=== PATIENT | female | born 1965 | race Caucasian/White ===

== ENCOUNTER 2024-12-20 11:05 | Emergency (ER) | payer OTHER, SELFPAY ==
--- NOTE | ~2024-12-20 | CT_ITS ---
CLINICAL HISTORY: right flank pain CT ABDOMEN AND PELVIS WITHOUT CONTRAST Comparison: None provided Findings: Scattered atelectasis and/or scarring. 4 mm noncalcified nodule in the right lower lobe is nonspecific. No basilar consolidation or pleural effusion. Mild right hydronephrosis secondary to a 3 mm calculus in the right ureteropelvic junction. No acute abnormalities in the remaining unenhanced solid organs Cholecystectomy. Common bile duct measures 10 mm. Calcific plaque in the normal caliber abdominal aorta. No bowel obstruction, pneumoperitoneum, or pneumatosis. No ascites or organized fluid collection. No significant mesenteric or paracolic edema. The appendix is identified. No acute appendicitis. Anteverted uterus. Urinary bladder unremarkable. Multiple pelvic phleboliths. No acute fracture. IMPRESSION: 1. Mild right hydronephrosis secondary to a 3 mm calculus in the right ureteropelvic junction. 2. Prior cholecystectomy with common bile ductal dilatation up to 10 mm. No visible choledocholithiasis. 3. No obstructive or acute inflammatory changes in the gastrointestinal tract. This document has been electronically signed by: Mayda Martinez DO on 12/20/2024 13:12:58
[2024-12-20 11:09] VITALS: BP 124/59; PULSE 53; O2SAT 98
[2024-12-20 11:10] VITALS: BP 132/58; PULSE 50; RESP 18; TEMP 36.6; O2SAT 98; BMI 26.6
--- OUTSIDE RECORDS SUMMARY | 2024-12-20 11:30 | XMS_ITS | Encounter Summary ---
Author Organization [facility] Address [address] [place] [address] Phone Care Team Providers Care Ghost Writer Name Role Phone Aubree Villanueva MD Unavailable [phone] Ginger Trujillo MD Unavailable [phone] Daniel Buck PA-C Unavailable [phone] Louise Acevedo DO Primary Care Provider [phone] Alcides Miner MD Primary Care Provider [phone] Encounter Details Date Type Department Care Team (Latest Contact Info) Description 10/31/2020 Transcribe Orders Virtual Department [address] [place], [place] [id number] Darell Mccrary MD [address] [place] [address] [id number] [email or web address] Abnormal LFTs (Primary Dx) Social History Tobacco Use Types Packs/Day Years Used Date Smoking Tobacco: Never Smokeless Tobacco: Never Alcohol Use Standard Drinks/Week Comments Not Currently 1 (1 standard drink = 0.6 oz pur e alcohol) monthly Comments No Sex and Gender Information Value Date Recorded Sex Assigned at Female 04/29/2017 9:38 AM EST Legal Sex Female 9:38 PM EDT Gender Identity Female 04/29/2017 9:38 AM EST Sexual Orientation Straight 04/29/2017 9: 38 AM EST Occupation Industry Job Start Date Job End Date [employer] REF Not on file Not on file Not on file documented as of this encounter Plan of Treatment Not on file documented as of this encounter Results * US ABDOMEN LIMITED RIGHT UPPER QUADRANT (11/14/2020 10:18 AM EDT) Anatomical Region Laterality Modality Abdomen Ultrasound 11/14/2020 10:2 0 AM EDT Impressions 11/14/2020 10:21 AM EDT New hepatic steatosis. No acute findings. Narrative 11/14/2020 10:21 AM EDT COMPARISON: 05/19/2020. LIMITED ABDOMEN ULTRASOUND FINDINGS: Liver: Interval diffuse increased echogenicity. No masses. Gallbladder: Cholecystectomy. Common bile duct: 1 cm which is unchanged. Pancreas: Imaged pancreas. The pancreatic tail is obscured by bowel gas. Right Kidney: No hydronephrosis. Proximal abdominal aorta/IVC/Main Portal Vein: Unremarkable. Procedure Note Jose Mallory MD - 11/14/2020 COMPARISON: 05/19/2020. LIMITED ABDOMEN ULTRASOUND FINDINGS: Liver: Interval diffuse increased echogenicity. No masses. Gallbladder: Cholecystectomy. Common bile duct: 1 cm which is unchanged. Pancreas: Imaged pancreas. The pancreatic tail is obscured by bowelgas. Right Kidney: No hydronephrosis. Proximal abdominal aorta/IVC/Main Portal Vein: Unremarkable. IMPRESSION: New hepatic steatosis. No acute findings. us Darell Mccrary MD IMG US ABDOMEN Final Result documented in this encounter Visit Diagnoses Diagnosis Abnormal LFTs- Primary Abnormal LFTs documented in this encounter Care Teams Ghost Writer Relationship Specialty Start Date End Date Louise Acevedo DO [address] [place] [address] PCP - General Internal Medicine 05/19/20 08/26/23 Alcides Miner MD [address] [place] [phone] [email or web address] PCP - General Internal Medicine 08/27/23 Aubree Villanueva MD [address] [facility], [address] [place] [address] Historical LMR Provider 02/09/17 Ginger Trujillo MD [address] [place] [address], 2nd [place] [address] [email or web address] Historical LMR Provider 02/09/17 04/29/21 Daniel Buck PA-C [address] [place] [address] 1 [place] [address] Historical LMR Provider 02/09/17 2 documented as of this encounter Additional Source Comments The information contained in this document represents components of the legal health record. It is not the complete legal health record.[facility]
--- OUTSIDE RECORDS SUMMARY | 2024-12-20 11:30 | XMS_ITS | Encounter Summary ---
Author Organization [facility] Address [address] [place] [address] Phone Care Team Providers Care Materials Engineer Name Role Phone Aubree Villanueva MD Unavailable [phone] Ginger Trujillo MD Unavailable [phone] Daniel Buck PA-C Unavailable [phone] Unknown, Unknown Primary Care Provider Sandrine Ca NP Primary Care Provider [phone] Louise Acevedo DO Primary Care Provider [phone] Alcides Miner MD Primary Care Provider [phone] Reason for Referral * MRI/CAT Scan - Closed Specialty Diagnoses / Procedures Referred By Contac t Referred To Contact Radiology Diagnoses Lumbar radiculopathy Procedures MRI Lumbar Spine Scott Macedo MD Phone: tel: fax: Referral ID Status Reason Start Date Expiration Date Visits Re quested Visits Authorized [id number] Closed 12/24/2019 06/21/2020 1 1 Encounter Details Date Type Department Care Team (Latest Contact Info) Description 12/24/2019 Ancillary Orders [facility]3] Department [address] [place] [address] Scott Macedo MD [address] [place] [phone] Lumbar radiculopathy Social History Tobacco Use Types Packs/Day Years Used Date Smoking Tobacco: Never Smokeless Tobacco: Never Alcohol Use Standard Drinks/Week Comments Yes 1 (1 standard drink = 0.6 oz [...] documented as of this encounter Results * MRI LUMBAR SPINE (NEURO) WITHOUT CONTRAST (01/01/2020 8:18 AM EDT) Anatomical Region Laterality Modality L-spine Magnetic Resonan ce 01/01/2020 9:24 AM EDT Impressions 01/01/2020 9:29 AM EDT Multilevel disc protrusions and bulges, including new small to medium-sized disc protrusions at T12-L1 and L4-5. No prominent mass effect at any level, however. No significant canal stenosis or marked foraminal narrowing at any level. Narrative 01/01/2020 9:29 AM EDT HISTORY: Low back pain with right radicular symptoms. Bilateral feet numbness. COMPARISON: December 12, 2012 TECHNIQUE: Exam performed on a 1.5 Janette high-field MRI scanner. Sagittal T1, T2 and STIR, axial T1 and T2 sequences were obtained. FINDINGS: On sagittal sequences at T11-12 no finding of concern is identified. T12-L1: There is a new medium-sized right paracentral disc protrusion extending inferiorly. No prominent regional mass-effect. No canal or foraminal stenosis. L1-2: Degenerative disc disease with some focal left-sided disc bulging again noted, slightly more pronounced appearing but still minor. No significant canal or foraminal stenosis. L1-2: No findings of concern. L3-4: Small inferiorly extending disc protrusion again noted without significant mass effect or progression. No significant canal or foraminal stenosis. L4-5: Small central disc protrusion, new since prior fairly broad-based and with mild inferior extension but again without prominent mass-effect. No significant canal or foraminal stenosis. L5-S1: Degenerative disc disease with some chronic marrow endplate changes and mild disc ridge complex. No canal or foraminal stenosis. No marked hypertrophic changes at any level. Dural cyst noted at S2-3, unchanged. No worrisome marrow signal changes. Visualized lower thoracic cord demonstrates no clear signal abnormality. Study is not tailored for evaluation of regional soft tissues but no soft tissue findings of clear concern are detected in the [id number]. Procedure Note Franko Ralph MD - 01/01/2020 HISTORY: Low back pain with right radicular symptoms. Bilateral feetnumbness. COMPARISON: December 12, 2012 TECHNIQUE: Exam performed on a 1.5 Janette high-field MRI scanner. SagittalT1, T2 and STIR, axial T1 and T2 sequences were obtained. FINDINGS: On sagittal sequences at T11-12 no finding of concern is identified. T12-L1: There is a new medium-sized right paracentral disc protrusionextending inferiorly. No prominent regional mass-effect. No canal orforaminal stenosis. L1-2: Degenerative disc disease with some focal left-sided disc bulgingagain noted, slightly more pronounced appearing but still minor. Nosignificant canal or foraminal stenosis. L1-2: No findings of concern. L3-4: Small inferiorly extending disc protrusion again noted withoutsignificant mass effect or progression. No significant canal or foraminalstenosis. L4-5: Small central disc protrusion, new since prior fairly broad-basedand with mild inferior extension but again without prominent mass-effect.No significant canal or foraminal stenosis. L5-S1: Degenerative disc disease with some chronic marrow endplate changesand mild disc ridge complex. No canal or foraminal stenosis. No marked hypertrophic changes at any level. Dural cyst noted at S2-3,unchanged. No worrisome marrow signal changes. Visualized lower thoracic cord demonstrates no clear signal abnormality. Study is not tailored for evaluation of regional soft tissues but no softtissue findings of clear concern are detected in the [id number]. IMPRESSION: Multilevel disc protrusions and bulges, including new small tomedium-sized disc protrusions at T12-L1 and L4-5. No prominent mass effectat any level, however. No significant canal stenosis or marked foraminalnarrowing at any level. us Scott Macedo MD IMG MR XSPECIALTY Final Re sult documented in this encounter Visit Diagnoses Diagnosis Lumbar radiculopathy Thoracic or lumbosacral neuritis or radiculitis, unspecified Lumbar radiculopathy Thoracic or lumbosacral neuritis or radiculitis, unspecified documented in this encounter Care Teams Materials Engineer Relationship Specialty Start Date End Date Unknown, Unknown, [address] [place] [address] 1 [place] [address] PCP - General 11/12/18 12/31/19 Sandrine Metcalf NP [address] [place] [address] PCP - General 01/01/20 05/18/20 Louise Acevedo DO [address] [place] [address] PCP - General Internal Medicine 05/19/20 08/26/23 Alcides Miner MD [address] [place] [address] PCP - General Internal Medicine 08/27/23 Aubree Villanueva MD [address] [place] [address] [address] [place] [address] [email or web address] Historical LMR Provider 02/09/17 Ginger Trujillo MD [address] [place] [address], 2[address] [place] [address] Historical LMR Provider 02/09/17 04/29/21 Daniel Buck PA-C [address] [place], [place] [phone] Historical LMR Provider 02/09/17 2 documented as of this encounter Additional Source Comments The information contained in this document represents components of the legal health record. It is not the complete legal health record.[facility]
--- OUTSIDE RECORDS SUMMARY | 2024-12-20 11:30 | XMS_ITS | Encounter Summary ---
Author Organization [facility] Address [address] [place] [address] Phone Care Team Providers Care Mold Stacker Name Role Phone Aubree Villanueva MD Unavailable [phone] Ginger Trujillo MD Unavailable [phone] Daniel Buck PA-C Unavailable [phone] Louise Acevedo DO Primary Care Provider [phone] Alcides Miner MD Primary Care Provider + [phone] Encounter Details Date Type Department Care Team (Late st Contact Info) Description 06/27/2020 Procedure Pass [facility] Endoscopy Admitting Dept Virtual Department [address] [place] [address] Social History Tobacco Use Types Packs/Day Years [...] on file documented as of this encounter Visit Diagnoses Not on filedocumented in this encounter Care Teams Mold Stacker Relationship Specialty Start Date End Date Louise Acevedo DO [address] [place] [address] PCP - General Internal Medicine 05/19/20 08/26/23 Alcides Miner MD [address] [place] [address] PCP - General Internal Medicine 08/27/23 Aubree Villanueva MD [address] [place] [address], [address] [place] [address] Historical LMR Provider 02/09/17 Ginger Trujillo MD [address] [place] [address], 2nd [place] [address] Historical LMR Provider 02/09/17 04/29/21 Daniel Buck PA-C [address] [place] [address] [address] [place] [address] Historical LMR Provider 02/09/17 2 documented as of this encounter Additional Source Comments The information contained in this document represents components of the legal health record. It is not the complete legal health record.[facility]
--- OUTSIDE RECORDS SUMMARY | 2024-12-20 11:30 | XMS_ITS | Encounter Summary ---
Author Organization [facility] Address [address] [place] [address] Phone Care Team Providers Care Paperhanger Supervisor Name Role Phone Aubree Villanueva MD Unavailable [phone] Alcides Miner MD Primary Care Provider [phone] Encounter Details Date Type Department Care Team (Late st Contact Info) Description 08/27/2023 Procedure Pass [facility] Endoscopy Admitting Dept Virtual Department 30 [place] [address] Social History Tobacco Use Types Packs/Day Years Used Date Smoking Tobacco: Never Smokeless Tobacco: Never Alcohol Use Standard Drinks/Week Comments Not Currently 0 (1 standard drink = 0.6 oz pur e alcohol) Education Answer Date Recorded Are you interested in more education? Not on sunil e 08/17/2022 Are you concerned about learning? Not on file 08/17/2022 No 08/17/2022 No 08/17/2022 Digital Access Answer Date Recorded No 09/15/2022 No 09/15/2022 Reliable internet access at home? Not on file 09/15/2022 Device with a working camera? Not on file Intimate Partner Violence Answer Date R ecorded Denied Basic Needs Not on file 08/26/2023 In the past 12 months have y ou been in a relationship with a person who hurts, threatens, or tries to control you? No 08/26/2023 Worried food would run out Not on file 08/25 In the past 12 months have y ou been in a relationship with a person who hurts, threatens, or tries to control you? No 08/26/2023 Comments No Sex and Gender Information Value [...] on filedocumented in this encounter Care Teams Paperhanger Supervisor Relationship Specialty Start Date End Date Alcides Miner MD [address] [place] [address] [email or web address] PCP - General Internal Medicine 08/27/23 Aubree Villanueva MD [address] [facility], [facility] [place] [address] [place] [address] [email or web address] Historical LMR Provider 02/09/17 documented as of this encounter Additional Source Comments The information contained in this document represents components of the legal health record. It is not the complete legal health record.[facility]
--- OUTSIDE RECORDS SUMMARY | 2024-12-20 11:30 | XMS_ITS | Encounter Summary ---
Author Organization [facility] Address [address] [place] [address] Phone Care Team Providers Care Avionics Repair Technician Name Role Phone Aubree Villanueva MD Unavailable [phone] Ginger Trujillo MD Unavailable [phone] Daniel Buck PA-C Unavailable [phone] Sandrine Metcalf NP Primary Care Provider [phone] Louise Acevedo DO Primary Care Provider [phone] Alcides Miner MD Primary Care Provider + [phone] Encounter Details Date Type Department Care Team (Latest Contact Info) Description 05/06/2020 Transcribe Orders [address] [place] [address] Karyna Mercado PA-C [address] [place] [place] [address] [email or web address] RUQ pain (Primary Dx); Constipation, unspecified constipation type; Diarrhea, unspecified type Social History Tobacco Use Types Packs/Day Years [...] documented as of this encounter Results * Stool fat/fiber exam (05/13/2020 9:07 AM EST) FATTY ACID NORMAL NORMAL [facility] Neutral Fat, stool NORMAL NORMAL [facility] Stool (Stool) 05/13/2020 9:0 7 AM EST 05/13/2020 9:14 AM EST Karyna Mercado PA-C BODY FLUIDS AND STOOLS ORDERABL ES Final Result Performing Organization Address [facility] de Phone Number [address] [address] * Fecal leukocyte examination (05/13/2020 9:07 AM EST) Special Requests None 05/13/2020 9:08 AM EST [facility] GRAM STAIN No WBC seen on smear. 05/14/2020 9:35 AM EST [facility] Stool (Stool) 05/13/2020 9:0 7 AM EST 05/13/2020 9:15 AM EST Comment:STOOL us Karyna Mercado PA-C MICROBIOLOGY - GENERAL ORDERABL ES Final Result Performing Organization Address [facility]/ZIP Co de Phone Number [address] [address] * Fecal immunochemical test x1 (FIT) (05/13/2020 9:07 AM EST) Immuno Fecal Occult Negative Negative [facility] Stool (Stool) 05/13/2020 9:0 7 AM EST 05/13/2020 9:15 AM EST Karyna Mercado PA-C BODY FLUIDS AND STOOLS ORDERABL ES Final Result Performing Organization Address [facility] Co de Phone Number [address] [place] [address] * TSH (05/06/2020 10:57 AM EST) TSH 2.98 0.27 - 4.20 uIU/mL [facility] Blood 05/06/2020 10:5 7 AM EST 05/06/2020 11:02 AM EST us Karyna Mercado PA-C LAB BLOOD ORDERABLES Final Resu lt [address] [address] * Immunoglobulin A (05/06/2020 10:57 AM EST) Pathologist [facility] IgA 224 70 - 400 mg/dL [facility] Blood 05/06/2020 10:5 7 AM EST 05/06/2020 11:02 AM EST us Karyna Mercado PA-C LAB BLOOD ORDERABLES Final Resu lt Performing Organization Address City[facility]/ZIP Co de Phone Number [address] [address] * Tissue transglutaminase IgA (05/06/2020 10:57 AM EST) Pathologist [facility] TTG IGA ANTIBODY <1.2 <4.0 (Negative) U/mL [facility]PATH [facility] PA[facility] Blood 05/06/2020 10:5 7 AM EST 05/06/2020 11:02 AM EST us Karyna Mercado PA-C LAB BLOOD ORDERABLES Final Resu lt [facility] [address] [place] [address] * (ABNORMAL) C-Reactive Protein (05/06/2020 10:57 AM EST) Pathologist [facility] C REACTIVE PROTEIN 7.3(H) 0.0 - 4.0 mg/L [facility] Blood 05/06/2020 10:5 7 AM EST 05/06/2020 11:02 AM EST us Karyna Mercado PA-C LAB BLOOD ORDERABLES Final Resu lt [facility] [address] [place] [address] * CBC and differential (05/06/2020 10:57 AM EST) WBC 6.21 4.00 - 11.00 K/uL [facility] Comment:Note Reference Range updates to all CBC and Differential results. RBC 4.57 3.72 - 5.30 M/uL [facility] HGB 14.0 10.6 - 15.5 g/dL [facility] Comment:Note updated Referen ce Ranges for all CBC and Differential results. HCT 42.5 32.0 - 45.0 % [facility] PLT 270 140 - 430 K/uL [facility] MCV 93.0 78.0 - 97.0 fL [facility] MCH 30.6 25.0 - 33.0 pg [facility] MCHC 32.9 32.0 - 36.0 g/dL [facility] RDW 12.4 11.0 - 16.0 % [facility] MPV 10.4 8.4 - 12.8 fl [facility] NRBC 0.00 0 /100 WBCs [facility] ABSOLUTE NRBC 0.00 0 K/uL [facility] DIFF METHOD Auto [facility] NEUTS 52.1 43.0 - 75.0 % [facility] LYMPHS 41.7 18.2 - 47.4 % [facility] MONOS 4.2 4.00 - 11.00 % [facility] EOS 1.4 0.0 - 8.0 % [facility] BASOS 0.3 0.0 - 2.0 % [facility] Granulocytes, immature (%) 0.3 0.0 - 0.9 % [facility] ABSOLUTE NEUTS 3.23 1.80 - 7.70 K/uL [facility] ABSOLUTE LYMPHS 2.59 1.00 - 3.10 K/uL [facility] ABSOLUTE MONOS 0.26 0.20 - 0.80 K/uL [facility] ABSOLUTE EOS 0.09 0.00 - 0.80 K/uL [facility] ABSOLUTE BASOS 0.02 0.00 - 0.09 K/uL [facility] Granulocytes, immature 0.02 0.00 - 0.05 K/uL [facility] Blood 05/06/2020 10:5 7 AM EST 05/06/2020 11:02 AM EST us Karyna Mercado PA-C LAB BLOOD ORDERABLES Final Resu lt [facility] [address] [place] [address] * (ABNORMAL) Comprehensive metabolic panel (05/06/2020 10:57 AM EST) SODIUM 139 133 - 146 mmol/L [facility] POTASSIUM 3.8 3.3 - 5.1 mmol/L [facility] CHLORIDE 104 96 - 108 mmol/L [facility] CO2 26 21 - 35 mmol/L [facility] BUN 10 6 - 19 mg/dL [facility] CREATININE 0.70 0.5 - 1.5 mg/dL [facility] GLUCOSE 105(H) 70 - 99 mg/dL [facility] ALBUMIN 3.7(L) 3.9 - 4.8 g/dL [facility] TOTAL PROTEIN 7.3 6.5 - 8.0 g/dL [facility] CALCIUM 9.0 8.4 - 10.3 mg/dL [facility] ALKALINE PHOSPHATASE 62 39 - 117 U/L [facility] TOTAL BILIRUBIN 0.3 0.0 - 1.2 mg/dL [facility] AST 16 0 - 37 U/L [facility] ALT 12 0 - 40 U/L [facility] GLOBULIN 3.6 1 - 4.8 g/dL [facility] EGFR 100 >59 mL/min/1.7 3m2 [facility] Comment:Estimated glomerular filtration rate calculated using the CKD-EPI equation. ANION GAP 13 10 - 20 mmol/L [facility] Blood 05/06/2020 10:5 7 AM EST 05/06/2020 11:02 AM EST Karyna Mercado PA-C LAB BLOOD ORDERABLES Final Resu lt [facility] [address] [place] [address] documented in this encounter Visit Diagnoses Diagnosis RUQ pain- Primary Abdominal pain, right upper quadrant Constipation, unspecified constipation type Diarrhea, unspecified type documented in this encounter Care Teams Avionics Repair Technician Relationship Specialty Start Date End Date Sandrine Metcalf NP [address] [place] [address] PCP - General 01/01/20 05/18/20 Louise Acevedo DO [address] [place] [address] PCP - General Internal Medicine 05/19/20 08/26/23 Alcides Miner MD [address] [place] [address] PCP - General Internal Medicine 08/27/23 Aubree Villanueva MD [address] [place] [address], [address] [place] [address] Historical LMR Provider 02/09/17 Ginger Trujillo MD [address] [place] [address], 2[address] [place] [address] Historical LMR Provider 02/09/17 04/29/21 Daniel Buck PA-C [address] [place] [address] 1 [place] [address] Historical LMR Provider 02/09/17 2 documented as of this encounter Additional Source Comments The information contained in this document represents components of the legal health record. It is not the complete legal health record.[facility]
--- OUTSIDE RECORDS SUMMARY | 2024-12-20 11:30 | XMS_ITS | Encounter Summary ---
Author Organization [facility] Address [address] [address] Phone Care Team Providers Care Computer Engineer Name Role Phone Aubree Villanueva MD Unavailable [phone] Ginger Trujillo MD Unavailable [phone] Daniel Buck PA-C Unavailable [phone] Daniel Buck PA-C Primary Care Provider [phone] Unknown, Unknown Primary Care Provider Sandrine Ca NP Primary Care Provider Louise Acevedo DO Primary Care Provider [phone] Alcides Miner MD Primary Care Provider + [phone] Encounter Details Date Type Department Care Team (Late st Contact Info) Description 03/31/2018 Ancillary Orders Virtual Department 30 [place] [address] Sandrine Metcalf NP [address] [place] [address] Visit for screening mammogram Social History Tobacco Use Types Packs/Day Years [...] documented as of this encounter Visit Diagnoses Diagnosis Visit for screening mammogram documented in this encounter Care Teams Computer Engineer Relationship Specialty Start Date End Date Daniel Buck, VONNIE [address] [place] [address] PCP - General 02/20/17 07/20/18 Unknown, Unknown, [address] [place] [address] PCP - General 11/12/18 12/31/19 Sandrine Metcalf NP [address] [place] [address] PCP - General 01/01/20 05/18/20 Louise Acevedo DO [address] [place] [address] PCP - General Internal Medicine 05/19/20 08/26/23 Alcides Miner MD [address] [place] [address] PCP - General Internal Medicine 08/27/23 Aubree Villanueva MD [address] [place] [address] [email or web address] Historical LMR Provider 02/09/17 Ginger Trujillo MD [address] [place] [address], 2nd [place] [address] Historical LMR Provider 02/09/17 04/29/21 Daniel Buck PA-C [address] [place] [address] [place], [place] [id number] Historical LMR Provider 02/09/17 2 documented as of this encounter Additional Source Comments The information contained in this document represents components of the legal health record. It is not the complete legal health record.[facility]
--- OUTSIDE RECORDS SUMMARY | 2024-12-20 11:30 | XMS_ITS | Encounter Summary ---
Author Organization [facility] Address [address] [place] [address] Phone Care Team Providers Care Ged Instructor Name Role Phone Aubree Villanueva MD Unavailable [phone] Ginger Trujillo MD Unavailable [phone] Daniel Buck PA-C Unavailable [phone] Louise Acevedo DO Primary Care Provider [phone] Alcides Miner MD Primary Care Provider + [phone] Encounter Details Date Type Department Care Team (Late st Contact Info) Description 11/17/2020 Procedure Pass [facility] Endoscopy Admitting Dept Virtual Department [address] [place] [address] Social History Tobacco Use Types Packs/Day Years [...] on filedocumented in this encounter Care Teams Ged Instructor Relationship Specialty Start Date End Date Louise Acevedo DO [address] [place] [address] PCP - General Internal Medicine 05/19/20 08/26/23 Alcides Miner MD [address] [place] [address] PCP - General Internal Medicine 08/27/23 Aubree Villanueva MD [address] [place] [address], [address] [place] [address] Historical LMR Provider 02/09/17 Ginger Trujillo MD [address] [place] [address], [address] [place] [address] Historical LMR Provider 02/09/17 04/29/21 Daniel Buck PA-C [address] [place] [address] [address] [place] [address] Historical LMR Provider 02/09/17 2 documented as of this encounter Additional Source Comments The information contained in this document represents components of the legal health record. It is not the complete legal health record.[facility]
--- OUTSIDE RECORDS SUMMARY | 2024-12-20 11:30 | XMS_ITS | Encounter Summary ---
Author Organization [facility] Address [address] [place] [address] Phone Care Team Providers Care Fiber Technologist Name Role Phone Aubree Villanueva MD Unavailable [phone] Ginger Trujillo MD Unavailable [phone] Daniel Buck PA-C Unavailable [phone] Daniel Buck PA-C Primary Care Provider [phone] Unknown, Unknown Primary Care Provider Sandrine Ca NP Primary Care Provider [phone] Louise Acevedo DO Primary Care Provider [phone] Alcides Miner MD Primary Care Provider + [phone] Encounter Details Date Type Department Care Team (Late st Contact Info) Description 05/03/2017 Procedure Pass [place] Admitting Dept - Virtual Department [address] [place] [address] Social History Tobacco Use Types Packs/Day Years Used Date Smoking Tobacco: Never Smokeless Tobacco: Never Alcohol Use Standard Drinks/Week Comments Yes 0 (1 standard drink = 0.6 oz pur e alcohol) hardly ever Comments No Sex and Gender Information Value [...] on filedocumented in this encounter Care Teams Fiber Technologist Relationship Specialty Start Date End Date Daniel Buck PA-C [address] [place] [address] PCP - General 02/20/17 07/20/18 Unknown, Genie, [address] [place] [address] PCP - General 11/12/18 12/31/19 Sandrine Metcalf NP [address] [place] [address] PCP - General 01/01/20 05/18/20 Louise Acevedo DO [address] [place] [address] PCP - General Internal Medicine 05/19/20 08/26/23 Alcides Miner MD [address] [place] [address] PCP - General Internal Medicine 08/27/23 Aubree Villanueva MD [address] [place] [address], [facility] [address] [place] [address] Historical LMR Provider 02/09/17 Ginger Trujillo MD [address] [place] [address], 2nd [place] [address] Historical LMR Provider 02/09/17 04/29/21 Daniel Buck PA-C [address] [place] [address] Historical LMR Provider 02/09/17 2 documented as of this encounter Additional Source Comments The information contained in this document represents components of the legal health record. It is not the complete legal health record.[facility]
--- OUTSIDE RECORDS SUMMARY | 2024-12-20 11:30 | XMS_ITS | Encounter Summary ---
Author Organization [facility] Address [address] [place] [address] Phone Care Team Providers Care Real Estate Services Administrator Name Role Phone Aubree Villanueva MD Unavailable [phone] Ginger Trujillo MD Unavailable [phone] Daniel Buck PA-C Unavailable [phone] Unknown, Unknown Primary Care Provider Sandrine Ca NP Primary Care Provider [phone] Louise Acevedo DO Primary Care Provider [phone] Alcides Miner MD Primary Care Provider + [phone] Encounter Details Date Type Department Care Team (Late st Contact Info) Description 12/24/2019 Procedure Pass [address] [place] [address] Social History Tobacco Use Types Packs/Day Years [...] on filedocumented in this encounter Care Teams Real Estate Services Administrator Relationship Specialty Start Date End Date Unknown, Unknown, [address] [place] [address] 1 [place] [address] PCP - General 11/12/18 12/31/19 Sandrine Metcalf NP [address] [place] [address] PCP - General 01/01/20 05/18/20 Louise Acevedo DO [address] [place] [address] PCP - General Internal Medicine 05/19/20 08/26/23 Alcides Miner MD [address] [place] [address] PCP - General Internal Medicine 08/27/23 Aubree Villanueva MD [address] [place] [address], [address] [place] [address] [email or web address] Historical LMR Provider 02/09/17 Ginger Trujillo MD [address] [place] [address], 2nd [place] [address] Historical LMR Provider 02/09/17 04/29/21 Daniel Buck PA-C [address] [place] [address] Historical LMR Provider 02/09/17 2 documented as of this encounter Additional Source Comments The information contained in this document represents components of the legal health record. It is not the complete legal health record.[facility]
--- OUTSIDE RECORDS SUMMARY | 2024-12-20 11:30 | XMS_ITS | Encounter Summary ---
Author Organization [facility] Address [address] [place] [address] Care Team Providers Care Mannequin Maker Name Role Phone Sara Pabon PA-C Primary Care Provider [phone] Reason for Visit * Reason Comments Medication Management Encounter Details Date Type Department Care Team ([facility] Contact Info) Description 03/27/2023 Telephone [facility], [address] [place] [id number] Nathan Stafford MD [facility] [address] [place] [address] Medication Management Social History Tobacco Use Types Packs/Day Years Used Date Smoking Tobacco: Never Alcohol Use Standard Drinks/Week Comments Not Currently 0 (1 standard drink = 0.6 oz pur e alcohol) Comments Unknown Sex and Gender Information Value Date Recorded Sex Assigned at Female 09/18/2022 8:26 AM EDT Legal Sex Female 10:21 AM EDT Gender Identity Female 09/18/2022 8:26 AM EDT Sexual Orientation Heterosexual (straight) 09/18 8:26 AM EDT documented as of this encounter Plan of Treatment Not on file documented as of this encounter Visit Diagnoses Not on filedocumented in this encounter Care Teams Mannequin Maker Relationship Specialty Start Date End Date Sara Pabon PA-C [address] [place] [address] PCP - General 07/10/22 documented as of this encounter
--- OUTSIDE RECORDS SUMMARY | 2024-12-20 11:30 | XMS_ITS | Encounter Summary ---
Author Organization [facility] Address [address] [place] [address] Phone Care Team Providers Care Control Clerk Repairs Name Role Phone Aubree Villanueva MD Unavailable [phone] Ginger Trujillo MD Unavailable [phone] Daniel Buck PA-C Unavailable [phone] Sandrine Metcalf NP Primary Care Provider [phone] Louise Acevedo DO Primary Care Provider [phone] Alcides Miner MD Primary Care Provider + [phone] Encounter Details Date Type Department Care Team (Latest Contact Info) Description 05/13/2020 Transcribe Orders Virtual Department 30 [place] [address] Karyna Mercado PA-C [address] [facility], [place]. [address] [place] [address] [email or web address] Gastroesophageal reflux disease, unspecified whether esophagitis present (Primary Dx); RUQ pain Social History Tobacco Use Types Packs/Day Years [...] * US ABDOMEN LIMITED RIGHT UPPER QUADRANT (05/19/2020 8:36 AM EST) Anatomical Region Laterality Modality Abdomen Ultrasound 05/19/2020 8:38 AM EST Impressions 05/19/2020 8:40 AM EST 1.No acute findings. 2.Mild postcholecystectomy biliary dilatation. Narrative 05/19/2020 8:40 AM EST COMPARISON: None. LIMITED ABDOMEN ULTRASOUND FINDINGS: Liver: Normal. Gallbladder/Biliary Tree: Cholecystectomy. The common bile duct measures 1.1 cm which is mildly dilated and tapers to 0.5 cm distally. Pancreas: Imaged pancreas is normal. The pancreatic tail is obscured by bowel gas. Right Kidney: No hydronephrosis. Proximal abdominal aorta/IVC/Main Portal Vein: Unremarkable. Procedure Note Jose Mallory MD - 05/19/2020 COMPARISON: None. LIMITED ABDOMEN ULTRASOUND FINDINGS: Liver: Normal. Gallbladder/Biliary Tree: Cholecystectomy. The common bile duct measures1.1 cm which is mildly dilated and tapers to 0.5 cm distally. Pancreas: Imaged pancreas is normal. The pancreatic tail is obscured bybowel gas. Right Kidney: No hydronephrosis. Proximal abdominal aorta/IVC/Main Portal Vein: Unremarkable. IMPRESSION: 1.No acute findings. 2.Mild postcholecystectomy biliary dilatation. Karyna Mercado PA-C IMG US ABDOMEN Final Result documented in this encounter Visit Diagnoses Diagnosis Gastroesophageal reflux disease, unspecified whether esophagitis present- Primary RUQ pain Abdominal pain, right upper quadrant Gastroesophageal reflux disease, unspecified whether esophagitis present RUQ pain Abdominal pain, right upper quadrant documented in this encounter Care Teams Control Clerk Repairs Relationship Specialty Start Date End Date Sandrine Metcalf NP [address] [place] [address] PCP - General 01/01/20 05/18/20 Louise Acevedo DO [address] [place] [address] PCP - General Internal Medicine 05/19/20 08/26/23 Alcides Miner MD [address] [place] [address] PCP - General Internal Medicine 08/27/23 Aubree Villanueva MD [address] [place] [address], [address] [place] [address] [email or web address] Historical LMR Provider 02/09/17 Ginger Trujillo MD [address] [place] [address], 2nd [place] [address] Historical LMR Provider 02/09/17 04/29/21 Daniel Buck, ROSALBAC [address] [place] [address] [address] [place] [address] Historical LMR Provider 02/09/17 2 documented as of this encounter Additional Source Comments The information contained in this document represents components of the legal health record. It is not the complete legal health record.[facility]
--- OUTSIDE RECORDS SUMMARY | 2024-12-20 11:30 | XMS_ITS | Encounter Summary ---
Author Organization [facility] Address [address] [place] [address] Phone Care Team Providers Care Admissions Evaluator Name Role Phone Aubree Villanueva MD Unavailable [phone] Ginger Trujillo MD Unavailable [phone] Daniel Buck PA-C Unavailable [phone] Sandrine Metcalf NP Primary Care Provider Louise Acevedo DO Primary Care Provider Alcides Miner MD Primary Care Provider Encounter Details Date Type Department Care Team (Late st Contact Info) Description 04/06/2020 Transcribe Orders Virtual Department 30 [place] [address] Sandrine Metcalf NP [address] [place] [address] Encounter for laboratory testing for COVID-19 virus (Primary Dx) Social History Tobacco Use Types [...] documented as of this encounter Results * COVID-19 PCR Order (04/07/2020 1:53 PM EST) COVID Testing Status Specimen received in analyzing lab. [facility] Symptomatic? NO [facility] Other 04/07/2020 1:53 PM EST 04/07/2020 4:04 PM EST Sandrine Metcalf [facility] GABI [facility] Final Result [facility] [address] [place] [address] [facility] [address] [place] [address] documented in this encounter Visit Diagnoses Diagnosis Encounter for laboratory testing for COVID-19 virus- Primary documented in this encounter Care Teams Admissions Evaluator Relationship Specialty Start Date End Date Sandrine Metcalf NP [address] [place] [address] PCP - General 01/01/20 05/18/20 Louise Acevedo DO [address] [place] [address] PCP - General Internal Medicine 05/19/20 08/26/23 Alcides Miner MD [address] [place] [address] PCP - General Internal Medicine 08/27/23 Aubree Villanueva MD [address] [place] [address], [facility] [address] [place] [address] Historical LMR Provider 02/09/17 Ginger Trujillo MD [address] [place] [address], 2[address] [place] [address] [email or web address] Historical LMR Provider 02/09/17 04/29/21 Daniel Buck PA-C [address] [place] [address] [address] [place] [address] Historical LMR Provider 02/09/17 2 documented as of this encounter Additional Source Comments The information contained in this document represents components of the legal health record. It is not the complete legal health record.[facility]
--- OUTSIDE RECORDS SUMMARY | 2024-12-20 11:30 | XMS_ITS | Encounter Summary ---
Author Organization [facility] Address [address] [place] [address] Care Team Providers Care Composition Siding Worker Name Role Phone Sara Pabon PA-C Primary Care Provider [phone] Encounter Details Date Type Department Care Team (Late st Contact Info) Description 03/26/2023 Scanned Document [facility] [address] [facility] [address] [place] [id number] Nathan Stafford MD 85 [facility] [address] [place] [address] Social History Tobacco Use Types Packs/Day Years [...] on filedocumented in this encounter Care Teams Composition Siding Worker Relationship Specialty Start Date End Date Sara Pabon PA-C [address] [place] [address] PCP - General 07/10/22 documented as of this encounter
--- OUTSIDE RECORDS SUMMARY | 2024-12-20 11:30 | XMS_ITS | Clinical Summary ---
Author Organization [facility] Address [address] [place] [address] Phone Care Team Providers Care Biomedical Service Engineer Name Role Phone Aubree Villanueva MD Unavailable [phone] Alcides Miner MD Primary Care Provider [phone] Allergies Active Allergy Reactions Criticality Noted Date Comments Prochlorperazine Edisylate Anaphylaxis High 02/24/2017 Pregabalin 07/29/2023 Milk Containing Products (Dairy) Hives 02/24/2017 Oxcarbazepine Thrombocytopenia 02/24/2017 Needed transfusion Prochlorperazine 04/27/2021 Black Nubieber Anaphylaxis High 05/23/2020 Medications cetirizine (ZYRTEC) 10 MG tablet Take 10 mg by mouth daily. Active MULTIVIT WITH CALCIUM,IRON,MIN (WOMEN'S DAILY MULTIVITAMIN ORAL) Take by mouth. Activ e ALPRAZolam (XANAX) 0.5 MG tablet Take 0.5 mg by mouth as needed. 0 Active EPINEPHrine 0.3 mg/0.3 mL auto-injector Inject 0.3 mg into the muscle as needed. Active ketoconazole 2 % cream Apply topically daily. Active propranoloL (INDERAL) 20 MG immediate release tablet Take 20 mg by mouth as needed. Active RAKER BUFFING WHEEL THYROID 60 mg Tab Take 60 mg by mouth daily. 3 Active DULoxetine (CYMBALTA) 60 MG capsule Take 1 capsule by mouth every morning. 4 Active MOTEGRITY 1 mg tablet Take 1 mg by mouth daily. Active gabapentin (NEURONTIN) 100 MG capsule Take 100 mg by mouth as needed. Active estradioL (ESTRACE) 0.01 % (0.1 mg/gram) vaginal creamIndications: Dyspareunia in female Insert 2g vaginally nightly for 14 days then insert 2g vaginally twice weekly 42.5 g 1 4 Active Active Problems Problem Noted Date Diagnosed Date Vaginal atrophy 05/23/2020 Assessment & Plan (05/23/2020 11:20 AM EST): Trial of Estrace prescribed to help with atrophy/dyspareunia symptoms. History of cervical dysplasia 03/18/2017 Overview (07/12/2022): 12/2016: HGSIL/HRHPV positive pap (16/18 neg) 02/2017: colpo MADHU 2-3 on 12:00/4:00/7:00 biopsies, ECC with CIN2 04/2017: CKC, CIN2-3 with positive margins 09/2017: pap NIL/HRHPV positive -> colpo done 10/2017: benign 05/2018: ASCUS cannot exclude HGSIL/HRHPV positive -> colpo 06/2018: benign 01/2019: NIL, TZ absent, HRHPV pos -> colpo benign ECC 04/2020: ASCUS/HPV pos -> colpo MADHU 1 2021: NIL/HPV neg 2022: NIL/HPV neg Plan: repeat in 3 years Assessment & Plan (09/25/2017 9:34 AM EDT): CKC 04/2017 with positive margins Pap repeated today Thrombocytopenia 02/24/2017 Assessment & Plan (02/24/2017 4:11 PM EST): Plt tx in ED now -ER provider d/unique [place], if plt>10 in am consider dc home -DC trileptal -follow cbc Depression 02/24/2017 Assessment & Plan (09/25/2017 11:09 AM EDT): Kendra continues on Pristiq and now with addition of Wellbutrin. We discussed mood symptoms in general and menopausal changes. Given her current medication regimen, recommend consultation with psych med prescriber for possible dose adjustments or consideration of alternate medication to address moods. Assessment & Plan (02/24/2017 4:12 PM EST): Cont pristiq (pt own med) GERD (gastroesophageal reflux disease) 7 Assessment & Plan (02/24/2017 4:13 PM EST): h2b if needed Chronic lower back pain 02/24/2017 Assessment & Plan (02/24/2017 4:13 PM EST): Cont gabapentin -tylenol prn Resolved Problems Problem Noted Date Diagnosed Date Resolved Date Hot flashes, menopausal 09/25/2017 02/0 04/2020 Assessment & Plan (09/25/2017 11:10 AM EDT): Reviewed options for management of hot flashes including HRT, gabapentin, and SSRI. Kendra is already on all of these medications and hot flashes are manageable. Would not adjust medications at this time to address hot flashes. 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 03/18/2017 07/29/2023 Immunizations Immunization Administration Dates Next Due COVID-19 (Pre-02/11) Moderna Vaccine, mRNA, PF 0 05/20/2020 INFLUENZA, SPLIT VIRUS, TRIVALENT W/ PRESERVATIV E IM 12/31/2011 Influenza Quadrivalent w/ Preservative IM 2019,01/27/2019 Family History Medical History Relation Comments Atrial fibrillation Father Heart attack Father Parkinson's disease Father Stroke Father Colon cancer Maternal Grandmother Stroke Mother Heart attack Paternal Grandfather Heart attack Paternal Grandmother Relation Status Comments Father Maternal Grandfather Maternal Grandmother Mother Paternal Grandfather Paternal Grandmother Sister Alive Social History Tobacco Use Types Packs/Day Years Used Date Smoking Tobacco: Never Smokeless Tobacco: Never Tobacco Cessation:Counseling Given: Not Answered Alcohol Use Standard Drinks/Week Comments Not Currently [...] file Not on file Not on file Last Filed Vital Signs Vital Sign Reading Time Taken Comments Blood Pressure 127/72 08/27/2023 10:50 AM EDT Pulse 68 08/27/2023 10:50 AM EDT Temperature 35.5 C (95.9 F) 08/27/2023 10:25 AM EDT Respiratory Rate 15 08/27/2023 10:50 AM EDT Oxygen Saturation 98% 08/27/2023 10:50 AM EDT Inhaled Oxygen Concentration - - Weight 67.6 kg (149 lb) 07/29/2023 10:14 AM EDT Height 162.6 cm (5' 4 ) 07/09/2022 1:51 PM EDT Body Mass Index 25.58 07/09/2022 1:51 PM EDT Plan of Treatment Health Maintenance Due Date Last Done Comments Adult Td,Tdap Booster 1965 LIPID PANEL 1965 DEPRESSION SCREENING 1979 HEPATITIS C SCREENING 08/31/1985 HIV ONE-TIME SCREENING (18-65 YEARS) 08/31/1985 MAMMOGRAM 2007 COLOGUARD 08/31/2012 FOBT 08/31/2012 SIGMOIDOSCOPY 08/31/2012 VIRTUAL COLONOSCOPY 08/31/2012 PNEUMOCOCCAL VACCINES (50+ years) (1 of 1 - PCV) 08/31/2017 FIT TEST 05/13/2021 05/13/2020 SCREENING FOR DIABETES 05/06/2023 05/06/2020 COVID-19 VACCINE ( season) 2023 05/02/2023, 03/24/2022, 06/14/2020, Additional history exists PAP SMEAR 07/09/2025 07/09/2022, 09/2021, 05/23/2020, Additional history exists COLONOSCOPY 08/26/2033 08/27/2023, 06/27/2020 COLORECTAL CANCER SCREENING 08/26/2033 ZOSTER VACCINES Completed 11/25/2022, 06/30/2022 SMOKING STATUS SCREENING (Once After 26 Yrs) Completed 08/27/2023 HEPATITIS A VACCINES Aged Out No long er eligible based on patient's age to complete this topic HIB VACCINES Aged Out No longer eligi ble based on patient's age to complete this topic MENINGOCOCCAL VACCINES (ACWY) Aged Out No longer eligible based on patient's age to complete this topic MENINGOCOCCAL VACCINES (B) Aged Out N o longer eligible based on patient's age to complete this topic Medical Devices Not on file Procedures Procedure Name Priority Date/Time Associated Diagnosis Comments ENDOSCOPY, COLON 08/27/2023 9:45 AM EDT PAP TEST Routine 07/09/2022 12:00 AM EDT HC BLOOD OCCULT FECAL HGB DETER IA QUAL FECES 1-3 Routine 05/13/2020 9:07 AM EST RUQ pain Constipation, unspecified constipation type Diarrhea, unspecified type from Last 3 Months or Most Recently Relevant to Health Maintenance Results * ENDOSCOPY, COLON (08/27/2023 9:45 AM EDT) Narrative Transcriptions Darell Saavedra MD - 08/27/2023 9:45 AM EDT [facility] Patient Name: Kendra Braga Attending MD:: DARELL SAAVEDRA MD, , Procedure Date: 08/27/2023 9:45 AM Date of : 1965 Age: 57 Admit Type: Outpatient Gender: Female Room: [place] [address] Referring MD: Alcides Miner MD Exam Type: Colonoscopy Indications: High risk colon cancer surveillance: Personalhistory of colonic polyps Medications: Monitored Anesthesia Care Procedure: Informed consent was obtained from the patientafter discussion of the indications, limitations, alternatives, benefits, and risks of the procedure. Risks specifically discussed include but are not limited to medication reactions, missed lesions, bleeding, perforation, or the need for emergent surgery. Throughout the procedure, the patient's blood pressure, pulse, end-tidal CO2, and oxygensaturations were monitored continuously. The Olympus pediatric variable [id number] #3 was introduced through the anus and advanced tothe cecum, identified by appendiceal orifice andileocecal valve. The colonoscopy was performed without difficulty. The patient tolerated the procedurewell. The quality of the bowel preparation was excellent. The quality of the bowel preparation was evaluated using the BBPS ([place] Bowel Preparation Scale)with scores of: Right Colon = 3, Transverse Colon = 3and Left Colon = 3 (entire mucosa seen well with no residual staining, small fragments of stool oropaque liquid). The total BBPS score equals 9. Anatomical landmarks were photographed. Complications: No immediate complications. Estimated blood loss: Minimal. Findings: The perianal and digital rectal examinations were normal. Three sessile polyps were found in the ascending colon. The polyps were 3 to 5 mm in size. Thesepolyps were removed with a cold snare. Resection and retrieval were complete. Internal hemorrhoids were found duringretroflexion. The hemorrhoids were moderate. The exam was otherwise normal throughout theexamined colon. Impression: - Three 3 to 5 mm polyps in the ascending colon, removed with a cold snare. Resected andretrieved. - Internal hemorrhoids. Recommendation: - Discharge patient to home. - Await pathology results. - Repeat colonoscopy in 3 years for surveillance. DARELL SAAVEDRA MD, 08/27/2023 10:20:39 AM This report has been signed electronically. Number of Addenda: 0 Note Initiated On: 08/27/2023 9:45 AM Procedure Code(s): --- Professional --- 65650, Colonoscopy, flexible; with removal of tumor(s), polyp(s), or other lesion(s) by snare technique --- Technical --- 65023, Colonoscopy, flexible; with removal of tumor(s), polyp(s), or other lesion(s) by snare technique Diagnosis Code(s): --- Professional --- Z86.010, Personal history of colonic polyps D12.2, Benign neoplasm of ascending colon K64.8, Other hemorrhoids --- Technical --- Z86.010, Personal history of colonic polyps D12.2, Benign neoplasm of ascending colon K64.8, Other hemorrhoids CPT copyright 2021 [employer]. All rights reserved. The codes documented in this report are preliminary and upon licensed practical nurse reviewmay be revised to meet current compliance requirements. Procedure Date: 08/27/2023 9:45:[address] [place] [address] us Alcides Miner MD GI PROCEDURE ORDERABLES Fi nal Result * Pap Test (07/09/2022 12:00 AM EDT) 07/09/2022 07/10/2022 9:3 0 AM EDT Narrative SEE NARRATIVE - 07/12/2022 8:20 AM EDT [address] [address] Manager Of Housekeeping: Licha Bhatti MD [facility] Cytology Report FINAL DIAGNOSIS A. PAP SMEAR (SUREPATH) CE: SPECIMEN ADEQUACY: Satisfactory for evaluation; transformation zone present. INTERPRETATION: NEGATIVE FOR INTRAEPITHELIAL LESION OR MALIGNANCY. Reactive changes. Electronically Signed Out By: JAHAIRA De Anda MD(ASCP) By his/her signature above, the pathologist listed as making the Final Diagnosis certifies that he/she has personally reviewed this case and confirmed or corrected the diagnosis. The Pap test is a screening test primarily for squamous cancers and precursors and has associated false-negative and false-positive results. New technologies such as liquid-based preparations may decrease but will not eliminate all false-negative results. Regular sampling and follow-up of unexplained clinical signs and symptoms are recommended to minimize false negative results. PROCEDURES/ADDENDA HPV Testing (Requested) Ordered Date: 07/10/2022 A. PAP SMEAR (SUREPATH) CE: Human Papilloma Virus Test NEGATIVE for high-risk Human Papilloma Virus types 16, 18, 45 and the Other high risk probe set (Includes 31, 33, 35, 39, 51, 52, 56, 58, 59, 66, 68) Note: Testing performed by [employer] Onclarity HR-HPV analysis. Clinical correlation is advised. This HPV test was performed at [facility], [address] [place] [address]. This test has been FDA approved for SurePath cervical cytology specimens. The accuracy and precision of this test for all other specimen sources has been verified in the Cytopathology Laboratory of the [facility] and has not been cleared or approved by the U.S. Food and Drug Administration. Clinical correlation is advised. CLINICAL HISTORY Date of Last Menstrual Period: Not Provided Menstrual History: Post Menopausal Contraceptive History: OCPs Infection History: HPV: OTHER HIGH RISK, 2020 Treatment History: Cone Bx: 2017 Other Clinical Conditions: Screening Pap Abnormal PAP: ASCUS, 2020 Abnormal BX: MADHU 1, 2020 SPECIMEN SOURCE A: PAP SMEAR (SUREPATH) CE Patient Name: KENDRA BRAGA : 1965 (Age: 56) Sex: F [facility] Location: [facility] Date of Collection: 07/09/2022 Date of Reported: 07/12/2022 08:20 Results to: Aubree Villanueva MD us Aubree Villanueva MD CYTOLOGY ORDERABLES Final Res ult SEE NARRATIVE * Fecal immunochemical test x1 (FIT) (05/13/2020 9:07 AM EST) Immuno Fecal Occult Negative Negative [facility] Stool (Stool) 05/13/2020 9:0 7 AM EST 05/13/2020 9:15 AM EST us Karyna Mercado PA-C BODY FLUIDS AND STOOLS ORDERABL ES Final Result Performing Organization Address City/[facility] Co de Phone Number [facility] [address] [place] [address] from Last 3 Months or Most Recently Relevant to Health Maintenance Insurance O O O O [facility] HMO Advance Directives For more information, please contact: [phone] (9AM - 5PM L[facility], Saturday-Saturday) * Full Code (Presumed) (Latest Code Status on File) Date Activated Date Inactivated Comments 05/03/2017 12:04 PM 05/03/2017 6:27 PM * Full Code (Presumed) Date Activated Date Inactivated Comments 02/24/2017 5:02 PM 02/25/2017 4:51 PM Care Teams Biomedical Service Engineer Relationship Specialty Start Date End Date Alcides Miner MD [address] [place] [address] PCP - General Internal Medicine 08/27/23 Aubree Villanueva MD [address] [place] [address], [address] [place] [address] [email or web address] Historical LMR Provider 02/09/17 Additional Source Comments The information contained in this document represents components of the legal health record. It is not the complete legal health record.[facility]
--- OUTSIDE RECORDS SUMMARY | 2024-12-20 11:30 | XMS_ITS | Encounter Summary ---
Author Organization [facility] Address [address] [place] [address] Care Team Providers Care Cultured Marble Products Maker Name Role Phone Sara Pabon PA-C Primary Care Provider [phone] Encounter Details Date Type Department Care Team (Late st Contact Info) Description 05/14/2023 Scanned Document [facility] [address] [facility] [address] [place] [address] Nathan Stafford MD [address] [facility] [address] [place] [address] Social History Tobacco Use Types Packs/Day Years [...] on filedocumented in this encounter Care Teams Cultured Marble Products Maker Relationship Specialty Start Date End Date Sara Pabon PA-C [address] [place] [address] PCP - General 07/10/22 documented as of this encounter
--- OUTSIDE RECORDS SUMMARY | 2024-12-20 11:30 | XMS_ITS ---
Author Name [facility] Organization Unknown History of Medication Use Medication Directions Dispensed Refills Start Date End Date Stat us prucalopride succinate (MOTEGRITY) 1 MG tablet Take 1 tablet (1 mg total) by mouth daily. 02/25/2023 4 active barium sulfate (EZ-PAQUE) 60 % oral suspension 150 mL 150 mL, Oral, Once in imaging, contrast, Starting on Sat09/18/22 at 0835, For 1 dose, Radiology Appointmentmix 60% barium/40% water 09/18/2022 3 completed thyroid (FRETTED STRING INSTRUMENT REPAIRER Thyroid) 60 MG tablet FRETTED STRING INSTRUMENT REPAIRER Thyroid 60 mg tablet TAKE ONE TABLET BY MOUTH EVERY DAY 06/14/2022 active cetirizine (ZyrTEC) 10 MG tablet Take by mouth daily. acti ve famotidine (PEPCID) 40 MG tablet Take by mouth nightly. active thyroid (ARMOUR) 60 MG tablet Take 1 tablet (60 mg total) by mouth daily. active Allergies Allergen Reaction Severity Comment Documented Date Source Status FD&C YELLOW #5 (TARTRAZINE) ITCHING 09/18/2022 [facility] active TARTRAZINE ITCHING 09/18/2022 [facility] active PROCHLORPERAZINE ANAPHYLAXIS 02/24/2017 [facility] active NUTS ANAPHYLAXIS [facility] OXCARBAZEPINE THROMBOCYTOPENIA Needed transfusion,Pt had to get a transfusion as a reaction to medication. [facility] Problems Problem Status Onset Date Problem Type Date of Resoluti on Source Gastroesophageal reflux disease with esophagitis without hemorrhage active 2022-08-10 ProblemAct [facility] Gastroparesis active ProblemAct [facility] Hiatal hernia active ProblemAct [facility] Immunizations Vaccine Date Source Lot Number Status Influenza (AFLURIA/FLUZONE) Inactivated/Split Quadrivalent with Preservative IM 02/17/2020 [facility] [id number] completed Influenza (AFLURIA/FLUZONE) Inactivated/Split Quadrivalent with Preservative IM 02/17/2020 [facility] [id number] completed Influenza (AFLURIA/FLUZONE) Inactivated/Split Quadrivalent with Preservative IM 01/27/2019 [facility] [id number] completed Influenza (AFLURIA/FLUZONE) Inactivated/Split Quadrivalent with Preservative IM 01/27/2019 [facility] [id number] completed Influenza Inactivated/Split Preservative Free IM 12/31/2011 [facility] completed Influenza Inactivated/Split Preservative Free IM 12/31/2011 [facility] completed Encounters Encounter Type Encounter Reason Primary Diagnosis Location Date Ambulatory [facility] Gastro-esophagea l reflux disease with esophagitis, without bleeding [facility] 10/05/2022 Ambulatory Gastro-esophagea l reflux disease without esophagitis [facility] 10/01/2022 Ambulatory Gastro-esophagea l reflux disease with esophagitis, without bleeding [facility] 09/18/2022 Ambulatory Gastro-esophagea l reflux disease with esophagitis, without bleeding [facility] 08/10/2022 Care Team Organization Name Specialty Phone Email Start Date End Da te [facility] BRAYDON DUBON Primary Care 08/10/2022 07/08/2024 [facility] BRAYDON DUBON Primary Care 08/10/2022 08/10/2022 [facility] NO PCP Primary Care 08/10/2022 08/10/2022
--- OUTSIDE RECORDS SUMMARY | 2024-12-20 11:30 | XMS_ITS | Encounter Summary ---
Author Organization [facility] Address [address] [place] [address] Phone Care Team Providers Care Brand Strategist Name Role Phone Aubree Villanueva MD Unavailable [phone] Ginger Trujillo MD Unavailable [phone] Daniel Buck PA-C Unavailable [phone] Louise Acevedo DO Primary Care Provider [phone] Alcides Miner MD Primary Care Provider + [phone] Encounter Details Date Type Department Care Team (Late st Contact Info) Description 11/15/2020 Procedure [facility] Endoscopy Admitting Dept Virtual Department [address] [place] [address] Social History Tobacco Use Types Packs/Day Years [...] on filedocumented in this encounter Care Teams Brand Strategist Relationship Specialty Start Date End Date Louise Acevedo DO [address] [place] [address] PCP - General Internal Medicine 05/19/20 08/26/23 Alcides Miner MD [address] [place] [address] PCP - General Internal Medicine 08/27/23 Aubree Villanueva MD [address] [place] [address], [address] [place] [address] Historical LMR Provider 02/09/17 Ginger Trujillo MD [address] [place] [address], [address] [place] [address] Historical LMR Provider 02/09/17 04/29/21 Daniel Buck PA-C [address] [place] [address] [address] [place] [address] Historical LMR Provider 02/09/17 2 documented as of this encounter Additional Source Comments The information contained in this document represents components of the legal health record. It is not the complete legal health record.[facility]
--- OUTSIDE RECORDS SUMMARY | 2024-12-20 11:30 | XMS_ITS | Clinical Summary ---
Author Organization [facility] Address [address] [place] [id number] Care Team Providers Care Balling Machine Operator Name Role Phone Sara Pabon PA-C Primary Care Provider [phone] Allergies Active Allergy Reactions Criticality Noted Date Comments Nuts Anaphylaxis High 09/18/2022 Oxcarbazepine Other (See Comments),Thrombocy topenia High 02/24/2017 Pt had to get a transfusion as a reaction to medication. Needed transfusion Prochlorperazine Anaphylaxis High 02/24/2017 Fd&C Yellow #5 (Tartrazine) Itching Low 09/18/2022 Medications cetirizine (ZyrTEC) 10 MG tablet Take by mouth daily. Active thyroid (ARMOUR) 60 MG tablet Take 1 tablet (60 mg total) by mouth daily. Active famotidine (PEPCID) 40 MG tablet Take by mouth nightly. Active desvenlafaxine (KHEDEZLA) 50 MG Tablet SR 24 hr 24 hr tablet Take 1 tablet (50 mg total) by mouth daily. Active thyroid ([employer]OR [employer] Thyroid) 60 MG tablet [employer]OR [employer] Thyroid 60 mg tablet TAKE ONE TABLET BY MOUTH EVERY DAY 06/14/19 23 Active Desvenlafaxine (KHEDEZLA PO) desvenlafaxine A ctive cetirizine (ZyrTEC) 10 MG chewable tablet Zyrtec Acti ve RABEprazole (ACIPHEX) 20 MG tabletIndication s:Gastroesophage al reflux disease with esophagitis without hemorrhage Take 1 tablet (20 mg total) by mouth 2 (two) times a day with meals. 180 tablet 3 08/11/19 23 Active linaclotide (LINZESS) 72 mcg capsuleIndicatio ns:Constipation, unspecified constipation type Take 1 capsule (72 mcg total) by mouth every morning before breakfast. 30 capsule 1 03/28/20 23 Active prucalopride succinate (MOTEGRITY) 1 MG tabletIndication s:Gastroparesis, Constipation, unspecified constipation type Take 1 tablet (1 mg total) by mouth daily. 30 tablet 3 05/29/19 24 Active Active Problems Problem Noted Date Diagnosed Date Gastroesophageal reflux dise ase with esophagitis without hemorrhage 08/10/2022 Hiatal hernia Gastroparesis Immunizations Immunization Administration Dates Next Due Influenza (AFLURIA/FLUZONE) Inactivated/Split Quadrivalent with Preservative IM 02/17/2020,01/27/2019 Influenza Inactivated/Split Preservative Free IM 12/31/2011 Family History Medical History Relation Name Comments Stroke Father Nathan Alcohol abuse Maternal Grandfather Fer Cancer, other Maternal Grandmother Verna Stomach cancer Paternal Uncle Jose Relation Name Status Comments Father Nathan Maternal Grandfather Fer Maternal Grandmother Verna Paternal Uncle Jose Social History Tobacco Use Types Packs/Day Years Used Date Smoking Tobacco: Never Tobacco Cessation:Counseling Given: Not Answered Alcohol Use Standard Drinks/Week Comments Not Currently 0 (1 standard drink = 0.6 oz pur e alcohol) Comments Unknown Sex and Gender Information Value Date Recorded Sex Assigned at Female 09/18/2022 8:26 AM EDT Legal Sex Female 10:21 AM EDT Gender Identity Female 09/18/2022 8:26 AM EDT Sexual Orientation Heterosexual (straight) 09/18 8:26 AM EDT Last Filed Vital Signs Vital Sign Reading Time Taken Comments Blood Pressure 145/83 02/25/2023 8:37 AM EST Pulse 83 02/25/2023 8:37 AM EST Temperature - - Respiratory Rate - - Oxygen Saturation 97% 02/25/2023 8:37 AM EST Inhaled Oxygen Concentration - - Weight 68 kg (150 lb) 10/05/2022 10:30 AM EDT Height 162.6 cm (5' 4 ) 10/05/2022 10:30 AM EDT Body Mass Index 25.75 10/05/2022 10:30 AM EDT Plan of Treatment Health Maintenance Due Date Last Done Comments Hepatitis C Virus Screening 1965 HIV Screening 08/31/1980 DTaP/Tdap/Td Vaccines (1 - Tdap) 08/31/1986 Hepatitis B Vaccines (1 of 3 - 19+ 3-dose series) 08/31/1986 Pap Smear (Ages 21-65) 08/31/1988 Mammogram 2007 Colonoscopy 08/31/2012 Pneumococcal Vaccines 50+ (1 of 1 - PCV) 08/31/2017 Zoster (Shingles) Vaccine (1 of 2) 08/31/2017 COVID-19 Vaccine (2 - season) 2023 Influenza Vaccine 11/20/2024 02/17/2020, , 12/31/2011 Insurance [facility] Care Teams Balling Machine Operator Relationship Specialty Start Date End Date Sara Pabon PA-C [address] [place] [id number] PCP - General 07/10/22
--- NOTE | 2024-12-20 11:40 | ED_ITS ---
HPI - General Adult General Chief complaint: Abdominal Pain Stated complaint: FLANK PAIN Time Seen by Provider: 12/20/24 11:40 Source: patient and family (patient's sister) Mode of arrival: ambulatory Limitations: no limitations History of Present Illness ED Provider: Nani Rosario PA-C HPI narrative: Patient is a 59 year-old assigned at female with a history of past gallbladder removal, depression, and seasonal allergies presenting to the emergency department with concern of right flank pain. The pain started around 0900 this morning and has been constant since but waxes and wanes in intensity. She describes the pain as sharp. She reports associated nausea and diaphoresis. She denies any dysuria, hematuria, urgency, or changes to urinary frequency. She reports she has not tried any medication to relieve the pain. She denies any dizziness, headaches, vision changes, chest pain, shortness of breath, abdominal pain, changes to bowel movements, or any other symptoms. Onset (ago): hour(s) (3) Quality: sharp Associated symptoms: diaphoresis Related Data Previous Rx's ?Medication ?Instructions ?Recorded naproxen 500 mg tablet 500 mg PO BID 7 days #14 tab s 12/20/24 prednisone 10 mg tablet 10 mg PO DAILY 4 days #4 tab s 12/20/24 tamsulosin 0.4 mg capsule 0.4 mg PO DAILY #7 caps 11/22 05/16 Allergies Allergy/AdvReac Type Severity Reaction Status Date / Time oxcarbazepine (From Allergy Anaphylaxis Verified 12/20/24 11:12 Trileptal) prochlorperazine (From Allergy Anaphylaxis Verified 12/20/24 11:12 Compazine) Review of Systems 2 Constitutional: Constitutional: Reports as per HPI Eyes: Eyes: Reports as per HPI ENT: Reports as per HPI Cardiovascular: Cardiovascular: Reports as per HPI Respiratory: Respiratory: Reports as per HPI Gastrointestinal: Gastrointestinal: Reports as per HPI Genitourinary: Genitourinary: Reports as per HPI Musculoskeletal: Musculoskeletal: Reports as per HPI Integumentary/Breasts: Skin/Breast: Reports as per HPI Neurologic: Reports as per HPI Psychiatric: Psychiatric: Reports as per HPI Endocrine: Endocrine: Reports as per HPI Hematologic/Lymphatic: Hematologic/Lymphatic: Reports as per HPI Allergic/Immunologic: Allergic/Immunologic: Reports as per HPI [facility] Past Medical History Attestation statement: The following information was validated with the patient. (all information validated with the patient's sister) Source: old records reviewed, obtained from family (patient's sister provided additional history and confirmed the history provided by the patient. ) and nursing notes reviewed Social History Social History Advance Directives: Yes Advance Directives Information Provided: No Advance Directives on File: No Do you have a plan to hurt others: No Plan Physical Exam ED Vital Signs: Vital Signs - 24 hr 12/20/24 11:10 12/20/24 12:28 12/20/24 13:12 Temperature 98 F 98.0 F 97.1 F Pulse Rate 50 57 55 Respiratory Rate 18 18 19 Blood Pressure 132/58 L 132/65 156/69 H Pulse Oximetry 98 97 100 Oxygen Delivery Method Room Air Room Air Room Air BMI result Body Mass Index 26.6 Const General: cooperative, no acute distress, alert and awake Nutritional Appearance: well nourished Orientation/consciousness: patient oriented x3 HENMT Head: Yes normal to inspection and Yes atraumatic Ears: hearing grossly normal bilaterally and external ears normal General nose exam: Normal external nose present, no nasal discharge noted and no epistaxis Face and sinus: Yes normal facial exam, No abrasion and No laceration Mouth: Normal oral and palatal mucosa present, no drooling and no muffled voice Eyes General: appearance normal, both eyes and all related structures Periorbital: periorbital findings normal Eyelids: Yes eyelids normal Conjunctivae: conjunctivae normal Pupils: Equal, round and reactive pupils present EOM: EOMs intact bilaterally Neck Neck: Yes normal visual inspection and Yes full ROM Resp Effort & Inspection: normal respiratory effort and able to speak in complete sentences Auscultation: clear to auscultation bilaterally Cardio Rate: regular rate Rhythm: regular rhythm Neuro General: patient oriented x3, moves all extremities and CN's II-XI intact bilaterally Cranial nerves: Yes Equal, round and reactive pupils present Cognition (Neuro): normal cognition Extrem General: Yes normal to inspection, Yes full ROM and Yes capillary refill normal Psych Appearance: grossly normal Mental Status: mental status grossly normal Affect: normal affect Attitude: cooperative Thought process: Normal thought process present Thought content: Normal thought content present Insight: Good insight present (Psych) Medications Administered Discontinued Medications Generic Name Dose Route Start Last Admin Trade Name Freq PRN Reason Stop Dose Admin Sodium Chloride 1,000 mls @ 999 mls/hr 12/20/24 12:00 12/20/24 13:52 Ns IV 12/20/24 13:00 Infused .Q1H1M HELEN Infusion Ketorolac Tromethamine 15 mg 12/20/24 11:49 12/20/24 12:19 Ketorolac Tromethamine 15 Mg/Ml Vial IVPUSH 12/20/24 11:50 15 mg ONCE ONE Administration Morphine Sulfate 4 mg 12/20/24 13:44 12/20/24 14:01 Morphine Sulfate 4 Mg/Ml Cartridge IVPUSH 12/20/24 13:45 4 mg ONCE ONE Administration Protocol Ondansetron HCl 4 mg 12/20/24 13:44 12/20/24 14:01 Ondansetron Hcl 4 Mg/2 Ml Vial IVPUSH 12/20/24 13:45 4 mg ONCE ONE Administration Prednisone 10 mg 12/20/24 13:44 12/20/24 14:01 Prednisone 10 Mg Tablet PO 12/20/24 13:45 10 mg ONCE ONE Administration Tamsulosin HCl 0.4 mg 12/20/24 13:44 12/20/24 14:02 Tamsulosin Hcl 0.4 Mg Capsule PO 12/20/24 13:45 0.4 mg ONCE ONE Administration Medical Decision Making Medical Decision Making [facility] Narrative: Patient is a 59 year-old assigned at female with a history of past gallbladder removal, depression, and seasonal allergies presenting to the emergency department with concern of right flank pain. Patient's physical exam was as noted in the physical exam portion of this note. Patient's blood work was unremarkable. Patient's urine showed no evidence of infection but did show evidence of blood. Patient's CT abd/pelvis showed a 3mm right kidney stone with mild hydronephrosis. I spoke to the urologist emotional support teacher, Dr. Gonzalez who agreed with my plan of discharging the patient home on prednisone, tamsulosin, and naproxen with outpatient follow up. I explained my physical exam findings as well as all test results to the patient and the patient's sister. I answered all questions asked by the patient and the patient's sister. Patient received IV fluids, Toradol, Morphine, and Zofran which, upon re-evaluation, she stated it helped her symptoms significantly. I stressed the importance of the patient taking her medication as directed (either prescribed or as the over the counter packaging recommends). I stressed the importance of the patient following up with her primary care provider and a urologist. I stressed the importance of the patient returning to the emergency department immediately if her symptoms were to worsen or if she were to develop any dizziness, shortness of breath, difficulty breathing, chest pain, blurry vision, loss of vision, nausea, vomiting, abdominal pain, fever, chills, back pain, or any other complaints. Patient and the patient's sister verbalized agreement and understanding with this treatment plan and discharge. Differential Diagnosis Differential Diagnoses: The differential diagnosis associated with the presentation includes Kidney stone UTI Flank pain Admission/Observation Consideration of admission/observation: Escalation of care including admission/observation considered Patient would have been admitted to the hospital had her work up had any findings where hospital admission was appropriate and her clinical presentation warranted hospital admission. Consult Healthcare Provider Management of the patient was discussed with: Latin Dancer (I spoke with the urologist emotional support teacher as noted in the MDM Rationale portion of this note. ) Lab Data [facility] Lab Attestation statement: I reviewed the patient's lab results. My interpretation of these results are in the MDM Rationale portion of this note. 12/20/24 11:49 12/20/24 11:49 Labs: Lab Results 12/20/24 12/20/24 Range/Units 11:49 13:25 WBC 8.6 (4.8-10.8) X10*3/uL RBC 4.40 (4.20-5.50) X10*6/uL Hgb 13.4 (12.0-16.0) g/dl Hct 40.1 (37.0-47.0) % MCV 91.1 (80.0-98.0) fL MCH 30.5 (27.0-33.0) pg MCHC 33.4 (31.0-35.0) g/dl RDW 12.8 (11.0-16.0) % Plt Count 241 (160-400) X10*3/uL MPV 9.9 (9.4-12.3) fL Immature Gran % (Auto) 0.3 (0.0-0.4) % Neut % (Auto) 79.5 H (45-73) % Lymph % (Auto) 16.9 L (20-40) % [place] % (Auto) 2.4 (2-11) % Eos % (Auto) 0.7 (0-4) % Baso % (Auto) 0.2 (0-2) % Lymph # (Auto) 1.5 (1.2-4.9) X10*3/uL [place] # (Auto) 0.2 (0.1-1.2) X10*3/uL Eos # (Auto) 0.1 (0.0-0.4) X10*3/uL Baso # (Auto) 0.0 (0.0-0.2) X10*3/uL Abs Immat Gran (auto) 0.03 (0.00-0.03) X10*3/uL Absolute Neuts (auto) 6.9 (2.0-8.3) x10*3/uL Absolute Nucleated RBC 0.000 (0.0-0.012) X10*3/uL Nucleated RBC % (auto) 0.0 (0.0-0.2) /100WBC Sodium 143 (135-145) mmol/L Potassium 4.1 (3.3-5.1) mmol/L Chloride 106 (96-108) mmol/L Carbon Dioxide 25 (22-29) mmol/L Anion Gap 16 (12-20) BUN 12 (9-16) mg/dL Creatinine 0.87 (0.5-1.4) mg/dL Estim Creat Clear Calc 68.6 Estimated GFR > 60 Random Glucose 135 H (60-115) mg/dL Calcium 9.3 (8.4-10.2) mg/dL Total Bilirubin 0.3 (0.0-1.0) mg/dL AST 25 (5-31) U/L ALT 17 (0-31) U/L Alkaline Phosphatase 124 H (39-117) U/L Total Protein 7.3 (6.5-8.0) g/dL Albumin 4.1 (3.5-5.0) g/dL Lipase 30 (8-78) U/L Urine Color Dark Yellow Urine Appearance Cloudy Urine pH 6.5 (5.0-9.0) Ur Specific [place] 1.020 (1.005-1.025) Urine Protein 100 (2+) H (Neg-Trace) mg/dL Urine Glucose (UA) Negative (Negative) mg/dL Urine Ketones Trace (Negative) mg/dL Urine Blood Large (3+) H (Negative) Urine Nitrite Negative (Negative) Ur Leukocyte Esterase Small (1+) H (Negative) Urine RBC >20 H (0-2) /HPF Urine WBC 6-10 H (0-5) /HPF Ur Squamous Epith Cells 6-10 (0-2) /HPF Urine Bacteria None Seen (None Seen) Hyaline Casts 0-2 (0-2) /LPF Independent Interpretation I performed an independent interpretation of an: CT Scan Interpretation: My interpretation is in agreement with the radiologist's impression of this imaging study. L Report Number: [id number]: Total DLP = 440.00 mGy-cm CLINICAL HISTORY: right flank pain CT ABDOMEN AND PELVIS WITHOUT CONTRAST Comparison: None provided Findings: Scattered atelectasis and/or scarring. 4 mm noncalcified nodule in the right lower lobe is nonspecific. No basilar consolidation or pleural effusion. Mild right hydronephrosis secondary to a 3 mm calculus in the right ureteropelvic junction. No acute abnormalities in the remaining unenhanced solid organs Cholecystectomy. Common bile duct measures 10 mm. Calcific plaque in the normal caliber abdominal aorta. No bowel obstruction, pneumoperitoneum, or pneumatosis. No ascites or organized fluid collection. No significant mesenteric or paracolic edema. The appendix is identified. No acute appendicitis. Anteverted uterus. Urinary bladder unremarkable. Multiple pelvic phleboliths. No acute fracture. IMPRESSION: 1. Mild right hydronephrosis secondary to a 3 mm calculus in the right ureteropelvic junction. 2. Prior cholecystectomy with common bile ductal dilatation up to 10 mm. No visible choledocholithiasis. 3. No obstructive or acute inflammatory changes in the gastrointestinal tract. This document has been electronically signed by: Mayda Martinez DO on 12/20/2024 13:12:58 Dictated By: Mayda Martinez MD Signed By: Electronically signed by Mayda Martinez MD 12/20/24 0935 Independent Historian Clinical information obtained from an independent historian. History obtained from or confirmed by: Other (patient's sister provided additional history and confirmed the history provided by the patient. ) Prescription Management I considered prescription management with: Pain Medication (patient prescribed pain medication) Critical Care Time Critical Care Time Critical Care Time: Yes Total Critical Care Time: 48 Attestation: I spent 48 minutes of Critical Care Time with this patient. This does not include time spent on separately reported billable procedures. Discharge Plan Discharge Clinical Impression: Kidney stone Patient Disposition: Home, Self-Care Instructions: Kidney Stones (ED), Hydronephrosis (ED) Additional Instructions: Your work up today revealed a 3mm stone in your right ureteropelvic junction with mild hydronephrosis (fluid back up into the right kidney). This stone will very likely pass on it's own given it's size and location. I spoke with the urologist emotional support teacher (Dr. Gonzalez) who agreed with the plan of treatment we discussed: Oral Tamsulosin (you were given first dose in the department, so start your home dose tomorrow 12/21/2024) Oral Prednisone (you were given first dose in the department, so start your home dose tomorrow 12/21/2024) Oral Naproxen (you were given Toradol while in the department so you can take Naproxen as early as 5pm tonight) Following up with the [facility] Urology office on an outpatient basis Drinking plenty of fluids IF you are prescribed home medications and/or you are taking over the counter medications at home - it is very important you continue to do so as prescribed / directed unless told otherwise. Follow up with your primary care provider. Return to the emergency department immediately if your symptoms worsen or if you develop any numbness, tingling, dizziness, shortness of breath, difficulty breathing, chest pain, blurry vision, loss of vision, nausea, vomiting, abdominal pain, fever, chills, back pain, or any other complaints. Please see the information below about our Patient Portal. If you are not yet enrolled in the [facility] Patient Portal, you will receive an enrollment email invitation following your visit to any [facility] care setting. You may also self-enroll in the Patient Portal by visiting our website: [email or web address] The following information is required to access the Patient Portal: - Your [facility] Medical Record Number - Your personal home email address (must match what is in your electronic medical record, Registration staff can assist with this) - Name - Date of Capabilities of the Patient Portal: - Message some providers - View upcoming appointments - Access your health summary, medical history, and visit history - View current conditions and allergies - View procedure and lab results - View your medications, including guidelines, side effects, and precautions - Complete pre-appointment questionnaires requested by your provider - Ready summary reports of your office visits and procedures To access the Patient Portal Mobile [place], follow these directions: - Search [employer] in the [place] Store or [employer] Store - Download the [place] - Search for [facility] - Enter your login/password Prescriptions: New prednisone 10 mg tablet 10 mg PO DAILY 4 Days Qty: 4 0RF tamsulosin 0.4 mg capsule 0.4 mg PO DAILY Qty: 7 0RF naproxen 500 mg tablet 500 mg PO BID 7 Days Qty: 14 0RF Referrals: [facility] Services [Provider Group, Urology] Referral Note: [facility] will be contacting you within 2 business days. During this phone call, they will inform you when your follow up appointment will be scheduled. If you have not received a call from [facility] after 2 business days - call the office at [phone]. Alcides Miner MD [Primary Care Provider, Family Practice] Print Language: Occitan
[2024-12-20 12:07] LABS: MANUAL DIFF FLAG NO
[2024-12-20 12:12] LABS: Hematocrit 40.1 % (37.0-47.0); Hemoglobin 13.4 g/dl (12.0-16.0); Imm Gran Abs Auto 0.03 X10*3/uL (0.00-0.03); Imm Gran Pct Auto 0.3 % (0.0-0.4); Lymphocytes Absolute Auto 1.5 X10*3/uL (1.2-4.9); Mean Corpuscular HGB Conc 33.4 g/dl (31.0-35.0); Mean Corpuscular Hemoglobin 30.5 pg (27.0-33.0); Mean Corpuscular Volume 91.1 fL (80.0-98.0); NRBC Abs Auto 0.000 X10*3/uL (0.0-0.012); NRBC Pct Auto 0.0 /100WBC (0.0-0.2); Platelet Count 241 X10*3/uL (160-400); Red Blood Count 4.40 X10*6/uL (4.20-5.50); White Blood Count 8.6 X10*3/uL (4.8-10.8)
[2024-12-20 12:28] VITALS: BP 132/65; PULSE 57; RESP 18; TEMP 36.7; O2SAT 97
[2024-12-20 12:31] LABS: Alanine Aminotransferase 17 U/L (0-31); Albumin Level 4.1 g/dL (3.5-5.0); Alkaline Phosphatase 124 U/L (39-117); Anion Gap 16 (12-20); Aspartate Amino Transferase 25 U/L (5-31); Blood Urea Nitrogen 12 mg/dL (9-16); Calcium 9.3 mg/dL (8.4-10.2); Carbon Dioxide 25 mmol/L (22-29); Chloride 106 mmol/L (96-108); Creatinine Clr Calc Pharmacy 68.6; Estimated Glomerular Filt Rate > 60; Lipase 30 U/L (8-78); Potassium 4.1 mmol/L (3.3-5.1); Sodium 143 mmol/L (135-145); Total Protein 7.3 g/dL (6.5-8.0)
[2024-12-20 13:12] VITALS: BP 156/69; PULSE 55; RESP 19; TEMP 36.2; O2SAT 100
[2024-12-20 13:37] LABS: Appearance Urine Cloudy; Glucose Urine UA Negative (Negative); PH 6.5 (5.0-9.0); Specific Gravity - Urine 1.020 (1.005-1.025); UMIC TRIGGER UACC YES
[2024-12-20 13:38] LABS: UACC Culture Trigger YES
[2024-12-20 14:45] VITALS: BP 156/69; PULSE 55; RESP 19; TEMP 36.2; O2SAT 100
== END 2024-12-20 14:53 | disposition home or self-care (01) ==
PROVIDERS: Emergency Provider Emergency Medicine; PCP Internal Medicine
DX: N13.2 Hydronephrosis with renal and ureteral calculous obstruction (principal)
CPT/HCPCS: 36415; 74176; 80053; 81001; 83690; 85025; 87086; 96361; 96374; 96375; 99284; 99285; J1885; J2270; J2405

== ENCOUNTER → 2024-12-20 11:49 | Outpatient (BNV) | payer OTHER, SELFPAY | PROVIDERS: PCP Internal Medicine; Visit Provider Radiology Diagnostic Radiology | DX: N13.2 Hydronephrosis with renal and ureteral calculous obstruction (principal) | CPT/HCPCS: 74176 ==